=== PATIENT | female | born 1980 | race Asian ===

== ENCOUNTER 2021-05-01 23:17 | Emergency (ER) | payer MEDICAID ==
[2021-05-01 23:52] LABS: COVID AG,FIA SOURCE NASOPHARYNGEAL
== END 2021-05-02 02:14 | disposition left against medical advice (07) ==
LOC: EMS 23:17
DX: Z20.822 Contact with and (suspected) exposure to COVID-19 (principal)

== ENCOUNTER 2023-01-02 18:52 | Emergency (ER) | payer MEDICAID, OTHER ==
[~2023-01-02] VITALS: Ht 154.9 cm; Wt 68.2 kg
[2023-01-02 19:02] VITALS: BP 151/91
[2023-01-02] MEDS ORDERED: IBUP-1554 PO (19:03)
[2023-01-02] MEDS ORDERED: GUAIFDM PO (19:03)
[2023-01-02] MEDS ORDERED: BENZ-227 PO (19:03)
[2023-01-02 19:05] LABS: COVID AG,FIA SOURCE NASOPHARYNGEAL
[2023-01-02 19:43] LABS: RAPID GROUP A STREP NEGATIVE (NEGATIVE)
[2023-01-02 19:44] LABS: INFLUENZA TYPE A NEGATIVE FOR TYPE A (NEGATIVE); INFLUENZA TYPE B NEGATIVE FOR TYPE B (NEGATIVE)
== END 2023-01-02 20:29 | disposition home or self-care (01) ==
LOC: EMS 18:58
DX: J06.9 Acute upper respiratory infection, unspecified (principal); Z20.822 Contact with and (suspected) exposure to COVID-19
CPT/HCPCS: 87430; 87804; 99283

== ENCOUNTER → 2023-07-17 | Outpatient (CLI) | payer OTHER ==
[~2023-07-17] MED LIST: BENZ-227 PO; GUAIFDM PO; IBUP-1554 PO
== END | disposition home or self-care (01) ==
LOC: LABMN 13:16
PROVIDERS: ATTEND Internal Medicine
DX: Z86.11 Personal history of tuberculosis (principal)
CPT/HCPCS: 71045